=== PATIENT | female | born 1940 | race Caucasian/White ===

== ENCOUNTER 2022-08-15 08:06 | Inpatient (IN) | payer MEDICARE, OTHER ==
[2022-08-15] MEDS ORDERED: Non-Formulary Medication 1 Each (Lidocaine 5% [Lidoderm 5%] 700 MG Patch) TOP PRN (12:12)
[2022-08-15] MEDS ORDERED: Ondansetron 4 MG Tab.DIS PO PRN (12:12)
[2022-08-15] MEDS ORDERED: Melatonin 3 MG Tab PO PRN (12:12)
[2022-08-15] MEDS ORDERED: Cholestyramine/Sucrose Powder 4 GM Packet PO PRN (12:12)
[2022-08-15] MEDS ORDERED: Fluticasone NASAL Spray 16 GM Bottle NASBOTH PRN (12:12)
[2022-08-15] MEDS ORDERED: Warfarin Sliding Scale PO SCH (12:15)
[2022-08-15] MEDS: Calcium Carbonate 500 MG Tab.Chew PO SCH ×2 (14:14→20:58)
[2022-08-15] MEDS: Acetaminophen 325 MG Tab PO SCH ×2 (14:14→21:03)
[2022-08-15] MEDS: Polyethylene Glycol 3350 Powder 17 GM Packet PO SCH (14:14)
[2022-08-15] MEDS ORDERED: Warfarin 2.5 MG Tab PO ONE (16:00)
[2022-08-15] MEDS: Brimonidine 0.2% Ophth Soln 5 ML Bottle EYERT SCH (20:57)
[2022-08-15] MEDS: Trospium 20 MG Tab PO SCH (20:58)
[2022-08-15] MEDS: diphenhydrAMINE 50 MG Cap PO PRN (20:58)
[2022-08-15] MEDS: Carbidopa/Levodopa 25-100 MG Tab PO SCH (20:59)
[2022-08-15] MEDS: Methocarbamol 750 MG Tab PO SCH (20:59)
[2022-08-15] MEDS: Carvedilol 6.25 MG Tab PO SCH (21:00)
[2022-08-15] MEDS: Latanoprost 0.005% Ophth Soln 2.5 ML Bottle EYERT SCH (21:00)
[2022-08-16] MEDS: oxyCODONE 5 MG Tab PO PRN ×2 (00:29→17:10)
[2022-08-16] MEDS: Acetaminophen 325 MG Tab PO SCH ×3 (05:54→21:08)
[2022-08-16] MEDS: Brimonidine 0.2% Ophth Soln 5 ML Bottle EYERT SCH ×2 (08:47→20:37)
[2022-08-16] MEDS: Carvedilol 12.5 MG Tab PO SCH (08:48)
[2022-08-16] MEDS: Losartan 25 MG Tab PO SCH (08:56)
[2022-08-16] MEDS: Polyethylene Glycol 3350 Powder 17 GM Packet PO SCH (08:57)
[2022-08-16] MEDS: Trospium 20 MG Tab PO SCH ×2 (08:57→20:39)
[2022-08-16] MEDS: Calcium Carbonate 500 MG Tab.Chew PO SCH ×3 (08:57→20:39)
[2022-08-16] MEDS: DULoxetine 60 MG Cap PO SCH (08:57)
[2022-08-16] MEDS: Methocarbamol 750 MG Tab PO SCH ×2 (08:57→20:38)
[2022-08-16] MEDS ORDERED: Warfarin 2.5 MG Tab PO ONE (16:00)
[2022-08-16] MEDS: Latanoprost 0.005% Ophth Soln 2.5 ML Bottle EYERT SCH (20:37)
[2022-08-16] MEDS: Carbidopa/Levodopa 25-100 MG Tab PO SCH (20:38)
[2022-08-16] MEDS: diphenhydrAMINE 50 MG Cap PO PRN (21:08)
[2022-08-16] MEDS: Carvedilol 6.25 MG Tab PO SCH (21:09)
[2022-08-17] MEDS: oxyCODONE 5 MG Tab PO PRN ×2 (00:27→21:19)
[2022-08-17] MEDS: Acetaminophen 325 MG Tab PO SCH ×3 (05:16→21:20)
[2022-08-17] MEDS: Brimonidine 0.2% Ophth Soln 5 ML Bottle EYERT SCH ×2 (09:15→21:25)
[2022-08-17] MEDS: Carvedilol 12.5 MG Tab PO SCH (09:16)
[2022-08-17] MEDS: Losartan 25 MG Tab PO SCH (09:23)
[2022-08-17] MEDS: DULoxetine 60 MG Cap PO SCH (09:24)
[2022-08-17] MEDS: Methocarbamol 750 MG Tab PO SCH ×2 (09:25→21:28)
[2022-08-17] MEDS: Polyethylene Glycol 3350 Powder 17 GM Packet PO SCH (09:25)
[2022-08-17] MEDS: Calcium Carbonate 500 MG Tab.Chew PO SCH ×3 (09:26→21:29)
[2022-08-17] MEDS: Trospium 20 MG Tab PO SCH ×2 (09:26→21:29)
[2022-08-17] MEDS ORDERED: Warfarin 2.5 MG Tab PO ONE (16:00)
[2022-08-17] MEDS: Carbidopa/Levodopa 25-100 MG Tab PO SCH (21:27)
[2022-08-17] MEDS: Carvedilol 6.25 MG Tab PO SCH (21:28)
[2022-08-17] MEDS: Latanoprost 0.005% Ophth Soln 2.5 ML Bottle EYERT SCH (21:29)
[2022-08-18] MEDS: Acetaminophen 325 MG Tab PO SCH ×2 (06:42→14:35)
[2022-08-18] MEDS: Carvedilol 12.5 MG Tab PO SCH (08:20)
[2022-08-18] MEDS: Losartan 25 MG Tab PO SCH (08:20)
[2022-08-18] MEDS: Brimonidine 0.2% Ophth Soln 5 ML Bottle EYERT SCH (08:20)
[2022-08-18] MEDS: Methocarbamol 750 MG Tab PO SCH (08:21)
[2022-08-18] MEDS: Polyethylene Glycol 3350 Powder 17 GM Packet PO SCH (08:21)
[2022-08-18] MEDS: oxyCODONE 5 MG Tab PO PRN (08:21)
[2022-08-18] MEDS: Trospium 20 MG Tab PO SCH (08:21)
[2022-08-18] MEDS: DULoxetine 60 MG Cap PO SCH (08:21)
[2022-08-18] MEDS: Calcium Carbonate 500 MG Tab.Chew PO SCH ×2 (08:21→18:25)
[2022-08-18] MEDS ORDERED: Warfarin 2.5 MG Tab PO ONE (16:00)
[2022-08-18 17:11] LABS: ESTIMATED GFR 35 mL/min (>60)
[2022-08-18] MEDS ORDERED: Iopamidol 755 Mg/ML 100 ML Bottle IV ONE (17:20)
[2022-08-18] MEDS ORDERED: Morphine 4 MG/ML VIAL IVPUSH ONE (18:30)
[2022-08-18] MEDS ORDERED: Sodium Chloride 0.9% 1,000 ML IV SCH (19:30)
[2022-08-18] MEDS ORDERED: Nitrofurantoin Monohydrate/Macrocrystalline 100 MG Cap PO SCH (21:00)
== END 2022-08-18 20:30 | DRG 552 ==
LOC: FB.MS 11:01
PROVIDERS: ADMIT Family Medicine; ATTEND Family Medicine
DX: S32.040S Wedge compression fracture of fourth lumbar vertebra, sequela (principal); N39.0 Urinary tract infection, site not specified; K56.50 Intestinal adhesions [bands], unspecified as to partial versus complete obstruction; R53.1 Weakness; N18.32 Chronic kidney disease, stage 3b; R10.32 Left lower quadrant pain; R14.0 Abdominal distension (gaseous); I48.0 Paroxysmal atrial fibrillation; Z66 Do not resuscitate; E78.00 Pure hypercholesterolemia, unspecified; I12.9 Hypertensive chronic kidney disease with stage 1 through stage 4 chronic kidney disease, or unspecified chronic kidney disease; H91.90 Unspecified hearing loss, unspecified ear; K59.03 Drug induced constipation; Z79.01 Long term (current) use of anticoagulants; Z79.899 Other long term (current) drug therapy; Z88.5 Allergy status to narcotic agent; Z95.0 Presence of cardiac pacemaker; Z88.8 Allergy status to other drugs, medicaments and biological substances; Z85.048 Personal history of other malignant neoplasm of rectum, rectosigmoid junction, and anus
CPT/HCPCS: 36415; 74177; 80053; 81001; 83605; 83735; 85025; 85610; 87086; 87088; 87186; 97110-GP; 97161-GP; 97165-GO; 97530-GO; 97535-GO; A9270-GY; J2270; J7030; Q0162; Q9967